=== PATIENT | male | born 1965 | race Two or more races ===

== ENCOUNTER 2019-10-14 23:49 | Emergency (ER) | payer SELFPAY ==
[~2019-10-14] VITALS: Ht 165.1 cm; Wt 90.7 kg
[2019-10-14] MEDS ORDERED: BUSPIRONE HCL5 M1 ORAL (23:54)
[2019-10-14] MEDS ORDERED: PERIOGARD473 ML MM (23:55)
[2019-10-14] MEDS ORDERED: LORATADINE5 MG/5 M3 PO (23:55)
[2019-10-14] MEDS ORDERED: BANOPHEN50 MG PO (23:55)
[2019-10-15] MEDS ORDERED: ASPIR 8181 MG ORAL (00:06)
[2019-10-15] MEDS ORDERED: NOVOLIN N100 UNIT/1 SUBQ (00:06)
[2019-10-15] MEDS ORDERED: HYDROCHLOROTHIA25 MG ORAL (00:06)
[2019-10-15] MEDS ORDERED: AMLODIPINE BESYL5 MG ORAL (00:06)
[2019-10-15] MEDS ORDERED: NOVOLIN R100 UNIT/1 SUBQ (00:06)
[2019-10-15] MEDS ORDERED: LISINOPRIL40 MG ORAL (00:06)
[2019-10-15] MEDS ORDERED: Albuterol ud Inhalation HHN ONE (01:30)
[2019-10-15 01:39] LABS: BASOPHILS % (AUTO) 1.4 % (0.0-2.0); EOSINOPHILS % (AUTO) 6.7 % (0.0-3.0); HEMATOCRIT 38.3 % (42.0-52.0); HEMOGLOBIN 13.2 G/DL (14.2-18.0); LYMPHOCYTES % (AUTO) 37.9 % (20.0-45.0); MEAN CORPUSCULAR VOLUME 91 FL (80-99); MONOCYTES % (AUTO) 10.6 % (1.0-10.0); NEUTROPHILS % (AUTO) 43.4 % (45.0-75.0); PLATELET COUNT 233 K/UL (150-450); RED CELL DISTRIBUTION WIDTH 11.7 % (11.6-14.8); WHITE BLOOD COUNT 7.4 K/UL (4.8-10.8)
[2019-10-15 01:42] VITALS: BP 128/71
--- NOTE | 2019-10-15 01:51 | Emergency Room Report ---
History of Present Illness General Chief Complaint: Syncope Source: Patient, Family Member Present Illness HPI This a 54-year-old male with history of diabetes high blood pressure. He presents with chief complaint of cough and syncope. He has been sick for about a week. He has severe coughing. Worse with inspiration. Denies any fever chills but felt nauseous. He was coughing so hard tonight that he passed out. He hit his head. Complaint of headache. No chest pain. Worse with inspiration. Better with rest. Denies any sputum. Allergies: Coded Allergies: No Known Allergies (Unverified , 10/15/19) Patient History Past Medical History: see triage record, old chart reviewed, DM, HTN Past Surgical History: other Pertinent Family History: none Social History: Denies: smoking Immunizations: other Reviewed Nursing Documentation: PMH: Agreed; PSxH: Agreed Nursing Documentation-PMH Hx Hypertension: Yes - hdl Hx Diabetes: Yes Review of Systems Eye: Denies: eye pain, blurred vision ENT: Denies: ear pain, nose congestion, throat swelling Respiratory: Reports: cough; Denies: shortness of breath Cardiovascular: Denies: chest pain, palpitations Gastrointestinal: Denies: abdominal pain, diarrhea, nausea, vomiting Musculoskeletal: Denies: back pain, joint pain Skin: Denies: rash Neurological: Reports: headache; Denies: numbness Endocrine: Denies: increased thirst, increased urine Hematologic/Lymphatic: Denies: easy bruising All Other Systems: negative except mentioned in HPI Physical Exam Vital Signs Date Time Temp Pulse Resp B/P (MAP) Pulse Ox O2 Delivery O2 Flow Rate FiO2 10/14/19 23:57 98.2 81 16 128/71 (90) 94 Room Air vitals signs unremarkable Sp02 EP Interpretation: reviewed, normal General Appearance: well appearing, no apparent distress, alert Head: normocephalic, atraumatic Eyes: bilateral eye PERRL, bilateral eye EOMI ENT: hearing grossly normal, normal pharynx Neck: full range of motion, supple, no meningismus Respiratory: chest non-tender, normal breath sounds, other - coughing with inspiration. Cardiovascular #1: regular rate, rhythm, no murmur Gastrointestinal: normal bowel sounds, non tender, no mass, no organomegaly, no bruit, non-distended Musculoskeletal: back normal, normal range of motion, gait/station normal Psychiatric: mood/affect normal Medical Decision Making Diagnostic Impression: Primary Impression: Syncope Qualified Codes: R55 - Syncope and collapse Additional Impressions: URI (upper respiratory infection) Qualified Codes: J06.9 - Acute upper respiratory infection, unspecified Pneumonitis Head injury, acute Qualified Codes: S09.90XA - Unspecified injury of head, initial encounter ER Course Patient presents with syncope secondary cough. Also had a head injury. CT scan was negative. Labs unremarkable. Chest x-ray is clear. Coughing is much better after breathing treatment. Because is been going on for a week and he has been coughing and has diabetes and high blood pressure, will put him on antibiotics. No evidence of ACS, PE, dissection to name a few. EKG Diagnostic Results Rate: normal Rhythm: NSR ST Segments: no acute changes Rhythm Strip Diag. Results EP Interpretation: yes Rate: 80 Rhythm: NSR, no PVC's, no ectopy Chest X-Ray Diagnostic Results Chest X-Ray Diagnostic Results : Chest X-Ray Ordered: Yes # of Views/Limited/Complete: 1 View Indication: Shortness of Breath EP Interpretation: Yes Interpretation: no consolidation, no effusion, no pneumothorax, no acute cardiopulmonary disease Impression: No acute disease Electronically Signed by: Beto Alberto MD CT/MRI/US Diagnostic Results CT/MRI/US Diagnostic Results : Imaging Test Ordered: CT head Impression Negative per radiologist Last Vital Signs Date Time Temp Pulse Resp B/P (MAP) Pulse Ox O2 Delivery O2 Flow Rate FiO2 10/15/19 01:42 98.2 88 19 128/71 98 Room Air Status: improved Disposition: HOME, SELF-CARE Condition: Stable Scripts Azithromycin* (ZITHROMAX*) 250 Mg Tablet 250 MG ORAL DAILY, #6 TAB 0 Refills Take two tables once daily for 1 day, then one tablet once daily for 4 days. Prov: Beto Alberto MD 10/15/19 Albuterol Sulfate* (ALBUTEROL SULFATE MDI*) 8.5 Gm Hfa.aer.ad 2 PUFF INH Q4H PRN for cough/wheezing, #1 EA 0 Refills Prov: Beto Alberto MD 10/15/19 Referrals: NON PHYSICIAN (PCP) Additional Instructions: Follow-up with your doctor in 7 days. Return if symptoms worsen. Beto Alberto MD Oct 15, 2019 01:51
[2019-10-15 01:57] LABS: APPEARANCE,URINE CLEAR; BILIRUBIN, URINE NEGATIVE (NEGATIVE); COLOR,URINE PALE YELLOW; GLUCOSE, URINE (UA) 2+ (NEGATIVE); KETONES,URINE NEGATIVE (NEGATIVE); LEUKOCYTE ESTERASE ,URINE NEGATIVE (NEGATIVE); NITRITE,URINE NEGATIVE (NEGATIVE); PH,URINE 5 (4.5-8.0); UROBILINOGEN,URINE NORMAL MG/DL (0.0-1.0)
[2019-10-15 01:58] LABS: PROTEIN,URINE NEGATIVE (NEGATIVE)
--- NOTE | 2019-10-15 02:00 | NUR ---
ED Nurse Note: Pt walked in c/o shortness of breath, reports that he had a syncopal episode today and lost consciencness at around 2330. Pt stated sycopal episode was witness by family member who is at bedside. Pt does not recall events, family member reports that they were at the dinner table talking and that it lasted for about 20 seconds
[2019-10-15 02:01] LABS: ANION GAP 10 mmol/L (5-15); BLOOD UREA NITROGEN 18 mg/dL (7-18); CALCIUM 8.8 MG/DL (8.5-10.1); CARBON DIOXIDE 28 MMOL/L (21-32); CHLORIDE 99 MMOL/L (98-107); CREATININE 1.2 MG/DL (0.55-1.30); POTASSIUM 3.8 MMOL/L (3.5-5.1); SODIUM 136 MMOL/L (136-145)
--- NOTE | 2019-10-15 03:08 | Diagnostic Imaging Report ---
Indications: Dizziness after a fall Technique: Spiral acquisitions obtained through the brain. Angled axial and coronal 5 x 5 mm slices were reconstructed. Total dose length product 1045 mGycm. CTDI vol(s) 53 mGy. Dose reduction achieved using automated exposure control Comparison: None. Findings: Small subcutaneous lesion is seen in the left posterior parietal scalp. The ventricles and extra-axial CSF spaces are within normal limits for age. No acute intracranial hemorrhage or edema. No mass effect nor midline shift. Guerra-white differentiation is normal. The calvarium is intact. The mastoids are clear. The orbits are unremarkable. There is ethmoid sinus mucosal thickening bilaterally. Impression: No acute intracranial bleed or mass effect Minimal sinus disease This agrees with the preliminary interpretation provided overnight by [facility] service. The CT scanner at [facility] is accredited by the [employer] and the scans are performed using protocols designed to limit radiation exposure to as low as reasonably achievable to attain images of sufficient resolution adequate for diagnostic evaluation.
[2019-10-15] MEDS ORDERED: ZITHROMAX250 MG ORAL (03:13)
[2019-10-15] MEDS ORDERED: ALBUTEROL SULF8.5 GM INH (03:13)
[2019-10-15 03:28] VITALS: BP 128/71
--- NOTE | 2019-10-15 03:28 | NUR ---
ER DISCHARGE NOTE: Patient is cleared to be discharged per ERMD, pt is aox4, on room air, with stable vital signs. pt was given dc and prescription instructions, pt was able to verbalize understanding, pt id band and iv site removed without complications. pt is able to ambulate with steady gait. pt took all belongings.
--- NOTE | 2019-10-15 11:35 | Diagnostic Imaging Report ---
Indication: Fall with resultant chest pain Technique: One view of the chest Comparison: none Findings: Lungs and pleural spaces are clear. The heart size is normal. The aorta is tortuous and calcified Impression: No acute process
== END 2019-10-15 03:28 | disposition home or self-care (01) ==
LOC: EMR 10-15 01:02
DX: J06.9 Acute upper respiratory infection, unspecified (principal); R55 Syncope and collapse; J18.9 Pneumonia, unspecified organism; S09.90XA Unspecified injury of head, initial encounter; X58.XXXA Exposure to other specified factors, initial encounter; Y92.9 Unspecified place or not applicable; E11.9 Type 2 diabetes mellitus without complications; E78.5 Hyperlipidemia, unspecified
CPT/HCPCS: 36415; 70450; 71045; 80048; 81001; 85025; 93005; 96360; 99284; J7030